=== PATIENT | female | born 1945 | race Caucasian/White ===

== ENCOUNTER → 2017-05-24 | Outpatient (CLI) | payer MEDICARE, OTHER ==
[~2017-05-24] MED LIST: ALPR.25 PO; CELE20TA PO; HYDR-3533 PO
[2017-05-24 09:53] LABS: ANION GAP 8 MEQ/L (5-15); AST (GOT) 8 U/L (15-37); BICARBONATE 28.1 MEQ/L (21.0-32.0); BLOOD UREA NITROGEN 17 MG/DL (7-18); CHLORIDE 105 MEQ/L (98-107); GLOMERULAR FILTRATION RATE 80 ML/MIN (>89); GLUCOSE,FASTING 84 MG/DL (74-99); POTASSIUM 3.9 MEQ/L (3.5-5.1); SODIUM (NA) 141 MEQ/L (136-145)
[2017-05-24 10:02] LABS: ALKALINE PHOSPHATASE 88 U/L (45-117); ALT (GPT) 15 U/L (10-53); FREE T4 0.86 NG/DL (0.76-1.46); HDL CHOLESTEROL 42.2 MG/DL (40.0-60.0); LDL CHOLESTEROL 102 MG/DL (0-99); TOTAL BILIRUBIN ADULT 0.3 MG/DL (0.2-1.0)
== END ==
LOC: CLAB 08:48
PROVIDERS: ATTEND Family Medicine
DX: E78.5 Hyperlipidemia, unspecified (principal); E03.9 Hypothyroidism, unspecified
CPT/HCPCS: 36415; 80053; 80061; 84439; 84443

== ENCOUNTER → 2017-10-27 | Outpatient (CLI) | payer MEDICARE, OTHER ==
[2017-10-27 12:03] LABS: FREE T4 0.9 NG/DL (0.76-1.46)
== END ==
LOC: CLAB 10:54
PROVIDERS: ATTEND Family Medicine
DX: E03.9 Hypothyroidism, unspecified (principal)
CPT/HCPCS: 36415; 84439; 84443